=== PATIENT | female | born 1995 | race African-American/Black ===

== ENCOUNTER 2017-10-11 13:51 | Emergency (ER) | payer SELFPAY ==
[2017-10-11] MEDS ORDERED: PSEUDOEPHEDRINE HCL 30 MG TABLET PO ONE (15:31)
[2017-10-11] MEDS ORDERED: ACETAMINOPHEN 325 MG TABLET PO ONE (15:31)
--- NOTE | 2017-10-11 15:31 | ER Document Report ---
HPI - HPI Patient complains to provider of: URi symptoms Pain Level: 3 Context: Patient is a 21-year-old female presents emergency department complaining of runny nose, sinus congestion, postnasal drip, sore throat and cough for the past 9 days. States she has been taking [id number] DayQuil with minimal improvement in her symptoms. Denies any fevers or chills. 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 Past Medical History - Social History Smoking Status: Never Smoker Family History: Reviewed & Not Pertinent Vertical Provider Document - CONSTITUTIONAL Agree With Documented VS: Yes Notes: PHYSICAL EXAM GENERAL: Alert, interacts well. HEENT: NCAT, pale conjunctiva, extraocular movements intact, pupils PERRL. external ear normal, no evidence of external auditory canal tenderness, blood/ drainage, cerumen impaction, TM intact without evidence of effusion, bulging, injection, MMM, Uvula midline. Airway patent. No evidence of tonsillar enlargement, peritonsillar abscess, retropharyngeal abscess. LUNGS: Clear to auscultation bilaterally, no wheezes, rales, or rhonchi. No respiratory distress. HEART: Regular rate and rhythm. No murmurs, gallops, or rubs. NEUROLOGICAL: Alert and oriented x4. Normal speech. PSYCH: Normal affect, normal mood. SKIN: Warm, dry, normal turgor. No rashes or lesions noted. - INFECTION CONTROL TRAVEL OUTSIDE OF THE [place] IN LAST 30 DAYS: No - RESPIRATORY O2 Sat by Pulse Oximetry: 99 Course - Re-evaluation Re-evalutation: 10/11/17 16:05 Patient is a 21-year-old female is hemodynamically stable, no acute distress and afebrile. Presentation is consistent with an upper respiratory infection. Rapid strep is negative. Patient is overall well appearance, vitals within normal limits, well-hydrated. Patient denies any headache, neck pain, and has no evidence of meningismus on examination. Lungs are clear bilaterally. No evidence of respiratory distress. Based on clinical exam and history, I do not suspect an acute pneumonia, meningitis, strep pharyngitis, or an acute encephalitis. No laboratory or imaging testing is indicated at this time. Will discharge patient with return precautions and followup recommendations. They are in agreement this plan have verbalized understanding return precautions. - Vital Signs Vital signs: Temp Pulse Resp BP Pulse Ox 98.3 F 86 20 116/67 99 10/11/17 14:51 10/11/17 14:51 10/11/17 14:51 10/11/17 14:51 10/11/17 14:51 Discharge - Discharge Clinical Impression: Post-nasal drip Condition: Good Disposition: HOME, SELF-CARE Additional Instructions: Your symptoms are most likely due to a viral infection it should resolve over the next 7-14 days. You should take [id number] guanfacine per bottle instructions to help thin the mucus. For nasal congestion: I would recommend that you get [id number] oxymetazoline also known is afrin. Use only per bottle instructions and be sure to never use this for more than 3 days if you can develop severe rebound congestion. You may also use tylenol or ibuprofen as needed for aches and thorat discomfort. Please be sure to drink plenty of fluids and get rest. Return to the emergency department he began having difficulty breathing, chest pain, persistent vomiting, or any other symptoms that are concerning to you. Please utilize pseudophedrine for nasal decongestant Prescriptions: Methylprednisolone [Medrol Dosepack (4 mg/Tab) 21 Tab/Dosepak] 4 mg PO ASDIR PRN #[id number] [email or web address] PRN Reason: Forms: Return to Work Referrals: DRAGAN EDMONDS PA-C [Primary Care Provider] - Follow up as needed
[2017-10-11 16:48] VITALS: BP 114/77
== END 2017-10-11 16:25 | disposition home or self-care (01) ==
LOC: ER 13:51
DX: R09.82 Postnasal drip (principal); J02.9 Acute pharyngitis, unspecified; R09.89 Other specified symptoms and signs involving the circulatory and respiratory systems; R09.81 Nasal congestion; R05 Cough
CPT/HCPCS: 87070; 87077; 87880; 99283